=== PATIENT | male | born 1980 | race African-American/Black ===

== ENCOUNTER 2017-06-15 08:26 | Emergency (ER) | payer BC, OTHER | END 2017-06-15 09:06 | disposition home or self-care (01) | LOC: ERS 08:26 | DX: J02.9 Acute pharyngitis, unspecified (principal); F41.9 Anxiety disorder, unspecified; F32.9 Major depressive disorder, single episode, unspecified; F25.9 Schizoaffective disorder, unspecified | CPT/HCPCS: 99282 ==